=== PATIENT | female | born 1990 ===

== ENCOUNTER 2023-01-12 16:20 | Outpatient (CLI) | payer SELFPAY ==
--- NOTE | ~2023-01-12 | US_ITS ---
EXAMINATION: US OB transvaginal INDICATION: RLQ PAIN TECHNIQUE: Sonography of the pelvis was performed by transvaginal techniques. COMPARISON: None. RESULT: Uterus: Orientation: Anteverted. 9.2 x 5.4 x 5.6 cm. Myometrium: 1.6 x 0.8 x 1.0 cm rounded appearin g echogenic focus adjacent to and indenting the inferior aspect of the gestational sac. Intrauterine gestational sac: Single present. Mean Sac Diameter: cm, corresponding gestational age week days. Yol k sac: Visualized, not directly measured . Embryo: Single present. [place] rump length: 0.8 cm, corre sponding gestational age 6 weeks, 5 days. Gestational heart rate: present 133 bpm. Subgestational he matoma: No hypoechoic subcutaneous gestational collection detected . Right ovary: 4.6 x 2.3 x 3.5 cm. Normal sonographic appearance with physiologic follicles. . Vascu lar flow is present. 2.0 cm simple cyst or dominant follicle. Left ovary: 2.2 x 0.9 x 1.8 cm. Normal sonographic appearance with physiologic follicles. . Vascul ar flow is present. No adnexal mass. Pelvis free fluid: None. IMPRESSION: Single, live intrauterine gestation. Estimated Gestational Age: 6 weeks, 5 days by crown rump length. SUKHJINDER by ultrasound 09/02/2023. 1.6 cm endometrial polyp, submucosal fibroid, or organized clot adjacent to and indenting the inferio r aspect of the gestational sac. Consider OB consultation and close clinical and sonographic follow-u p. Reviewed, dictated and finalized at location K. IMPRESSION: Single, live intrauterine gestation. Estimated Gestational Age: 6 weeks, 5 days by crown rump length. SUKHJINDER by ultras ound 09/02/2023. 1.6 cm endometrial polyp, submucosal fibroid, or organized clot adjacent to and indenting the inferior aspect of the gestational sac. Consider OB consultation and close clinical and sonographic follow-up.
== END 2023-01-12 16:21 ==
PROVIDERS: PCP Advanced Practice Midwife; Visit Provider Advanced Practice Midwife
DX: O26.851 Spotting complicating pregnancy, first trimester (principal); O99.891 Other specified diseases and conditions complicating pregnancy; N84.0 Polyp of corpus uteri
CPT/HCPCS: 76817

== ENCOUNTER 2023-02-10 12:39 | Outpatient (CLI) | payer OTHER, SELFPAY ==
--- NOTE | ~2023-02-10 | US_ITS ---
EXAMINATION: US OB <= 14 weeks fetus DATE: 02/10/2023 14:07 INDICATION: Spotting during first trimester TECHNIQUE: Real-time pelvic transabdominal ultrasound was performed. COMPARISON: 01/12/2023 FINDINGS: The uterus measures 12.8 x 7.5 x 7.8 cm. There is an intrauterine gestational sac. A yolk s ac is identified. heart motion is identified measuring 145 beats per minute (bpm) by M-mode Dop pler. The crown rump length measures 4.3 cm, which correlates with an estimated gestational age of 11 weeks and 1 day(s) (+/-) 7 day(s). The left ovary is not visualized however no left adnexal abnormality is seen. The right ovary measure s 4.3 x 1.7 x 2.1 cm. There is normal vascular flow in the right ovary. There is no free fluid in the pelvis. IMPRESSION: 1. Live intrauterine with an estimated gestational age of 11 weeks and 1 day(s) (+/-) 7 day (s) and an estimated delivery date of 08/31/2023. 2. No sonographic correlate for the patient's symptoms. Reviewed, dictated and finalized at location L. IMPRESSION: 1. Live intrauterine with an estimated gestational age of 11 weeks an d 1 day(s) (+/-) 7 day(s) and an estimated delivery date of 08/31/2023. 2. No sonographic correlate for the patient's symptoms.
[2023-02-10 14:19] LABS: Basophils Absolute Auto 0.1 K/mm3 (0.0-0.1); Basophils Percent Auto 0.8 % (0.2-1.2); Eosinophils Absolute Auto 0.2 K/mm3 (0-0.3); Eosinophils Percent Auto 1.9 % (0-4.4); Hematocrit 44.1 % (37.0-47.0); Hemoglobin 14.7 g/dL (12.0-15.0); Immature Granulocyte Absolute 0.06 K/mm3 (0.00-0.031); Immature Granulocyte Percent A 0.5 % (0-0.5); Lymphocytes Absolute Auto 3.59 K/mm3 (0.9-3.2); Lymphocytes Percent Auto 28.3 % (18.3-44.2); Mean Corpuscular HGB Conc 33.3 g/dl (32-36); Mean Corpuscular Hemoglobin 29.4 pg (26-34); Mean Corpuscular Volume 88.2 fl (80-100); Mean Platelet Volume 9.9 fl (7.4-10.4); Monocytes Absolute Auto 0.7 K/mm3 (0.1-0.6); Monocytes Percent Auto 5.4 % (2.6-8.5); Neutrophils Percent Auto 63.1 % (45.5-73.1); Platelet Count Result 341 k/mm3 (150-375); Red Cell Distribution Width 12.3 % (11.5-14.5); White Blood Count 12.7 K/mm3 (4.5-10.0)
[2023-02-10 14:33] LABS: Hemoglobin A1C 5.7 % (<5.7)
[2023-02-10 14:56] LABS: Free T4 Free Thyroxine 0.88 ng/mL (0.78-2.19)
[2023-02-10 15:09] LABS: Vitamin D 25 Hydroxy 30.2 ng/mL
[2023-02-10 15:12] LABS: HIV 1/2 Ab P24 Ag Result Negative (Negative)
[2023-02-10 15:18] LABS: Hepatitis B Surface Antigen Negative (Negative)
[2023-02-10 15:32] LABS: Hepatitis C Virus Antibody Negative (Negative)
[2023-02-10 20:52] LABS: Rubella IgG Antibody > 110.0 IU/ML
[2023-02-11 13:54] LABS: Rapid Plasma Reagin Non-Reactive (NonReactive)
== END 2023-02-10 12:40 | disposition home or self-care (01) ==
PROVIDERS: PCP Advanced Practice Midwife; Visit Provider Advanced Practice Midwife
DX: Z13.29 Encounter for screening for other suspected endocrine disorder (principal); O26.851 Spotting complicating pregnancy, first trimester; O36.8910 Maternal care for other specified fetal problems, first trimester, not applicable or unspecified; Z3A.11 11 weeks gestation of pregnancy
CPT/HCPCS: 36415; 76801; 82306; 82728; 83036; 84439; 84443; 85025; 86592; 86703; 86762; 86803; 86850; 86900; 86901; 87340; G0432

== ENCOUNTER 2023-02-13 09:26 | Outpatient (CLI) | payer OTHER, SELFPAY ==
[2023-02-13 11:10] LABS: Glucose Fasting 97 mg/dL
[2023-02-13 13:17] LABS: Glucose 1 Hour 198 mg/dL
[2023-02-13 14:45] LABS: Glucose 2 Hour 163 mg/dL
== END 2023-02-13 09:27 | disposition home or self-care (01) ==
LOC: ANHLAB 09:30
PROVIDERS: PCP Advanced Practice Midwife; Visit Provider Obstetrics & Gynecology Gynecology
DX: R79.9 Abnormal finding of blood chemistry, unspecified (principal)
CPT/HCPCS: 36415; 82951

== ENCOUNTER 2023-04-01 10:35 | Outpatient (CLI) | payer OTHER, SELFPAY ==
[2023-04-01 12:03] LABS: Free T4 Free Thyroxine 0.77 ng/mL (0.78-2.19)
== END 2023-04-01 10:36 | disposition home or self-care (01) ==
LOC: ANHLAB 10:37
PROVIDERS: PCP Advanced Practice Midwife; Visit Provider Advanced Practice Midwife
DX: E03.9 Hypothyroidism, unspecified (principal)
CPT/HCPCS: 36415; 84439; 84443

== ENCOUNTER 2023-06-24 11:59 | Outpatient (CLI) | payer OTHER, SELFPAY ==
[2023-06-24 12:53] LABS: Hematocrit 43.4 % (37.0-47.0)
[2023-06-24 13:33] LABS: Free T4 Free Thyroxine 0.75 ng/mL (0.78-2.19); Vitamin D 25 Hydroxy 51.9 ng/mL
[2023-06-24 13:39] LABS: Thyroid Stimulating Hormone 0.643 uIU/mL (0.465-4.680)
[2023-06-24 13:48] LABS: HIV 1/2 Ab P24 Ag Result Negative (Negative)
== END 2023-06-24 12:00 | disposition home or self-care (01) ==
LOC: ANHLAB 12:03
PROVIDERS: PCP Advanced Practice Midwife; Visit Provider Advanced Practice Midwife
DX: E03.9 Hypothyroidism, unspecified (principal); Z36.9 Encounter for antenatal screening, unspecified
CPT/HCPCS: 36415; 82306; 84439; 84443; 85014; 85018; 86703; G0432

== ENCOUNTER 2023-07-27 01:02 | Inpatient (IN) | payer OTHER, SELFPAY ==
[2023-07-27] VITALS (38 sets, daily range): BP systolic 117–173; BP diastolic 71–106; PULSE 68–111; RESP 16–17; TEMP 36.8; O2SAT 97–100; BMI 32.2
--- NOTE | ~2023-07-27 | US_ITS ---
ADDENDUM The following biometric data were obtained: BPD: 86 cm corresponds to gestational age 34 weeks 3 day(s). Head circumference: 308 cm corresponds to gestational age 34 weeks 2 day(s). Abdominal circumference: 299 cm corresponds to gestational age 33 weeks 6 day(s). Femur length: 64 cm corresponds to gestational age 33 weeks 0 day(s). Head circumference to abdominal circumference ratio: 1.03, normal range for gestational age of 0.95-1.11 Estimated weight: 2265 g plus or minus 340 g, 20.2% using Hadlock method. MONITOR addendum Dictated By: Diego Fry MD addendum signed By: 07/27/23944 DD/ TD/TT: / EXAMINATION: US OB limited w BPP DATE: 07/27/2023 08:06 PVC MONITOR INDICATION: Gestational hypertension. Spotting. TECHNIQUE: Real-time transabdominal obstetric ultrasound. FINDINGS: No prior studies for comparison. There is a single living fetus in vertex presentation. The placenta is anterior without placenta previa. KATERINA is normal measuring 12.9 cm. cardiac activity and movement is noted with a heart rate of 125 beats per minute. Biophysical profile: breathin of 2 movement: 2 of 2 tone: 2 of 2 Amniotic flud pocket: 2 of 2 Total score: 6 of 8 IMPRESSION: 1. Single living intrauterine in vertex presentation. 2: Total biophysical profile score of 6/8. MONITOR MTDD
--- NOTE | ~2023-07-27 | US_ITS ---
EXAMINATION: US OB limited w BPP DATE: 07/27/2023 08:06 WIND TURBINE ERECTOR INDICATION: Gestational hypertension. Spotting. TECHNIQUE: Real-time transabdominal obstetric ultrasound. FINDINGS: No prior studies for comparison. There is a single living fetus in vertex presentation. The placenta is anterior without placenta pre via. KATERINA is normal measuring 12.9 cm. cardiac activity and movement is noted with a heart rate of 125 beats per minute. Biophysical profile: breathin of 2 movement: 2 of 2 tone: 2 of 2 Amniotic flud pocket: 2 of 2 Total score: 6 of 8 IMPRESSION: 1. Single living intrauterine in vertex presentation. 2: Total biophysical profile score of 6/8. Reviewed, dictated and finalized at location A. TURBINE ERECTOR
--- NOTE | ~2023-07-27 | US_ITS ---
ADDENDUM The following biometric data were obtained: BPD: 86 cm corresponds to gestational age 34 weeks 3 day(s). Head circumference: 308 cm corresponds to gestational age 34 weeks 2 day(s). Abdominal circumference: 299 cm corresponds to gestational age 33 weeks 6 day(s). Femur length: 64 cm corresponds to gestational age 33 weeks 0 day(s). Head circumference to abdominal circumference ratio: 1.03, normal range for gestational age of 0.95-1.11 Estimated weight: 2265 g plus or minus 340 g, 20.2% using Hadlock method. OTYPE FABRICATOR EXAMINATION: US OB limited w BPP DATE: 07/27/2023 08:06 PROTOTYPE FABRICATOR INDICATION: Gestational hypertension. Spotting. TECHNIQUE: Real-time transabdominal obstetric ultrasound. FINDINGS: No prior studies for comparison. There is a single living fetus in vertex presentation. The placenta is anterior without placenta previa. KATERINA is normal measuring 12.9 cm. cardiac activity and movement is noted with a heart rate of 125 beats per minute. Biophysical profile: breathin of 2 movement: 2 of 2 tone: 2 of 2 Amniotic flud pocket: 2 of 2 Total score: 6 of 8 IMPRESSION: 1. Single living intrauterine in vertex presentation. 2: Total biophysical profile score of 6/8. OTYPE FABRICATOR MTDD
--- NOTE | 2023-07-27 01:02 | OBADM ---
This patient, Daisy Mitchell, admitted to the OB room Labor/Delivery/Recovery 106 for observation. Patient/family oriented to hospital policies and general routines including ID bracelet, bed and alarms, visiting hours, pain management, procedures, bathroom and other care routines, personal items, smoking policy, room service/diet, and visiting hours. Patient/Family are encouraged to report perceived risks to care and to ask questions if they do not understand what they are told or what they should do.
[2023-07-27 01:43] LABS: Appearance Urine Clear (Clear); Bacteria Urine None Seen /hpf; Bilirubin Urine Negative (Negative); Blood Urine Trace (Negative); Color Urine Yellow (Yellow); Glucose Urine UA Negative (Negative); Ketones Urine Negative (Negative); Leukocyte Esterase Ur Negative LEU/UL (Negative); Nitrate Urine Negative (Negative); Protein Urine 3+ mg/dL (Negative); RBC Urine 0-2 /hpf (0-2); Specific Grav Ur 1.008 (1.001-1.035); Squamous Epithelial Cell Urine None seen /hpf (Few); Urobilinogen Urine 0.2 mg/dL (<2.0); WBC Urine 0-5 /hpf
[2023-07-27 01:46] LABS: Creatinine Urine 25.5 mg/dL
[2023-07-27 01:47] LABS: Add Urine Microscopic? YES
[2023-07-27 01:48] LABS: Basophils Absolute Auto 0.1 K/mm3 (0.0-0.1); Basophils Percent Auto 0.8 % (0.2-1.2); Eosinophils Absolute Auto 0.3 K/mm3 (0-0.3); Eosinophils Percent Auto 2.7 % (0-4.4); Hematocrit 40.9 % (37.0-47.0); Immature Granulocyte Absolute 0.03 K/mm3 (0.00-0.031); Immature Granulocyte Percent A 0.3 % (0-0.5); Lymphocytes Absolute Auto 3.37 K/mm3 (0.9-3.2); Lymphocytes Percent Auto 32.1 % (18.3-44.2); Mean Corpuscular HGB Conc 31.8 g/dl (32-36); Mean Corpuscular Hemoglobin 27.5 pg (26-34); Mean Corpuscular Volume 86.7 fl (80-100); Mean Platelet Volume 11.7 fl (7.4-10.4); Monocytes Absolute Auto 0.9 K/mm3 (0.1-0.6); Monocytes Percent Auto 8.9 % (2.6-8.5); Neutrophils Absolute Auto 5.8 K/mm3 (1.3-6.7); Neutrophils Percent Auto 55.2 % (45.5-73.1); Platelet Count Result 245 k/mm3 (150-375); Red Blood Count 4.72 M/mm3 (4.2-5.4); White Blood Count 10.5 K/mm3 (4.5-10.0)
[2023-07-27 01:58] LABS: Alanine Aminotransferase 15 U/L (6-35); Albumin Level 3.5 g/dL (3.5-5.1); Alkaline Phosphatase 154 U/L (38-126); Anion Gap 8 mmol/L (8-16); Aspartate Amino Transferase 21 U/L (14-36); Bilirubin,Total 0.3 mg/dL (0.2-1.3); Blood Urea Nitrogen 18 mg/dL (7-17); Calcium 9.1 mg/dL (8.4-10.2); Carbon Dioxide 17 mmol/L (22-30); Chloride 108 mmol/L (98-107); Estimated Glomerular Filt Rate > 60; Glucose 76 mg/dL (65-110); Potassium 4.1 mmol/L (3.4-5.0); Sodium 133 mmol/L (137-145); Uric Acid 8.2 mg/dL (2.5-7.5)
--- NOTE | 2023-07-27 02:02 | PC.NURSE ---
0200- Dr. Kern paged. 020- Dr. Kern returned page. Dr. Kern updated on lab results including CMP, CBC, UA and Uric acid. Dr. Kern also updated on patient vital signs since arrival to OB unit. Patient denies any BATRES, vision changes, epigastic pain or s/s of preeclampsia. Patient reflexes are wnl. 1+ pitting edema noted in shins, patient states this has been present for over a week. FHT appropriate for gestational age and active movement noted. Patient presented with complaint of spotting 07/26 in the morning with additional brown discharge 07/26 in the evening that has now resolved. Patient also reports increased pelvic pain when standing/ambulating. Orders received to keep patient overnight for observation with ultrasound in the AM. Order also received for steroids and IV placement.
[2023-07-27 02:20] LABS: Total Protein Urine Random 276 mg/dL; Ur Ttl Prot Creatinine Ratio 10.82 mg/mg (0-0.20)
[2023-07-27] MEDS: BETAMETHASONE SOD PHOS/ACETATE 30 MG/5 ML VIAL 12 MG IM (03:08)
[2023-07-27] MEDS: INSULIN HUMAN NPH (*BKC) 100 UNITS/ML SUB-Q (05:30)
[2023-07-27] MEDS: LEVOTHYROXINE SODIUM 75 MCG TABLET PO (05:31)
[2023-07-27 05:47] LABS: Glucose Point of Care 84 mg/dl (65-105)
--- NOTE | 2023-07-27 07:37 | PM.OBPNLAB ---
Pain Control Date/time seen: 07/27/23 07:37 Comments: pt off unit in US. Strip, VS, labs reviewed. Bran US report.
--- NOTE | 2023-07-27 07:46 | PM.IMHP ---
H&P: HPI History of Present Illness Date/Time: 07/27/23 07:46 Chief Complaint: Vaginal bleeding Narrative: Pt presented to L&D with c/o spotting. Found to have severe range BPs. PIH labs sent. Celestone initiated. Ultrasound ordered. CNM at bedside at 0750. Pt reports feeling palpitations every evening when lying down. Denies palpitations otherwise. Also reports for the initial time having 2 weeks of intermittent blurred vision and intermittent sparkles . These vision changes happen independently from one another and are sporadic. No vision changes at this time. No RUQ pain. Good movement. Review of Systems Review of Systems: All systems reviewed & are unremarkable except as noted in HPI and below Meds Home Medications and Allergies Home Medications Medication Instructions Recorded Confirmed Type insulin NPH isoph U-100 human 100 4 unit subcut QAM 07/27/23 07/27/23 History unit/mL subcutaneous suspension (Humulin N NPH U-100 Insulin (isophane susp)) insulin NPH isoph U-100 human 100 18 unit subcut HS 07/27/23 07/27/23 History unit/mL subcutaneous suspension (Humulin N NPH U-100 Insulin (isophane susp)) insulin lispro 100 unit/mL 5 unit subcut QACBREAK 07/27/23 07/27/23 History subcutaneous solution insulin lispro 100 unit/mL 7 unit subcut QACDINNER 07/27/23 07/27/23 History subcutaneous solution levothyroxine 75 mcg tablet 75 mcg PO QAM 07/27/23 07/27/23 History Allergies Allergy/AdvReac Type Severity Reaction Status Date / Time No Known Allergies Allergy Verified 07/27/23 02:43 Vital Signs Vital Signs - 24 hr 07/27/23 01:19 07/27/23 01:23 07/27/23 01:31 Temperature Pulse Rate 74 74 79 Respiratory Rate Blood Pressure 173/96 H 160/106 H 147/95 H Blood Pressure [Right Arm] Oxygen Delivery 07/27/23 01:46 07/27/23 02:01 07/27/23 02:16 Temperature Pulse Rate 73 77 78 Respiratory Rate Blood Pressure 154/95 H 158/91 H 140/92 H Blood Pressure [Right Arm] Oxygen Delivery 07/27/23 03:23 07/27/23 03:42 07/27/23 03:46 Temperature Pulse Rate 81 85 74 Respiratory Rate Blood Pressure 152/97 H 148/84 H 139/87 Blood Pressure [Right Arm] Oxygen Delivery 07/27/23 04:01 07/27/23 01:20 07/27/23 04:16 Temperature 98.3 F Pulse Rate 80 86 Respiratory Rate 17 Blood Pressure 134/71 132/86 Blood Pressure [Right Arm] Oxygen Delivery 07/27/23 02:00 07/27/23 04:31 07/27/23 05:01 Temperature 98.3 F Pulse Rate 80 89 Respiratory Rate 16 Blood Pressure 117/74 124/81 Blood Pressure [Right Arm] Oxygen Delivery 07/27/23 06:01 07/27/23 01:20 07/27/23 01:20 Temperature Pulse Rate 84 74 Respiratory Rate Blood Pressure 125/77 Blood Pressure [Right Arm] 173/96 H Oxygen Delivery Room Air 07/27/23 04:11 Temperature Pulse Rate 68 Respiratory Rate Blood Pressure Blood Pressure [Right Arm] 147/95 H Oxygen Delivery Exam Const: General: comfortable and no acute distress Eyes: General: appearance normal, both eyes and all related structures Neck: Neck: supple Resp: Effort & Inspection: normal respiratory effort Auscultation: clear to auscultation bilaterally Cardio: Rate: regular rate GI: GI Palp: Yes Soft to palpation Other: gravid. Mild ctx palpated. : General: Yes bladder normal to palpation Speculum Exam - Vagina: vaginal bleeding (small amount dark garsia/brown bleeding in vault. Absorbed with large Q-tip. ) Other: Cervical os visually 0.5cm. SVE 1/60/-3 and soft. head palpated. Skin: General skin exam: normal color and no rashes or lesions noted Neuro: General: gait normal Speech: normal speech Sensory Exam: normal sensation Extrem: General: normal exam except as noted and edema (BLE 1+ pitting to knees) Psych: Mental Status: mental status grossly normal Affect: normal affect H&P: Results Labs Labs: Short CBC 07/27/23 R
--- NOTE | 2023-07-27 08:09 | ECG_ITS ---
Measurements Intervals [place] Rate: 76 P: 22 MT: 120 QRS: 7 QRSD: 89 T: 16 QT: 378 QTc: 425 Interpretive Statements SINUS RHYTHM LOW QRS VOLTAGE IN PRECORDIAL LEADS CANNOT RULE OUT SEPTAL INFARCT, AGE INDETERMINATE BORDERLINE T WAVE ABNORMALITY- ANTERIOR LEADS ABNORMAL ECG NO PREVIOUS ECG AVAILABLE FOR COMPARISON Electronically Signed On 07-27-2023 8:52:04 OPTICAL ADVISOR by Shekhar Pires D.O.
[2023-07-27] MEDS: INSULIN ASPART (*BKC) 100 UNITS/ML SUB-Q (09:44)
[2023-07-27 10:21] LABS: Free T4 Free Thyroxine 0.84 ng/mL (0.78-2.19)
[2023-07-27 11:02] LABS: Glucose Point of Care 193 mg/dl (65-105)
--- NOTE | 2023-07-27 12:32 | PM.OBPNLAB ---
Pain Control Date/time seen: 07/27/23 12:32. Spoke with Dr. Sierra Espinosa on telephone. Discussed pt situation. MD to evaluate pt after office hours today.
[2023-07-27] MEDS: FAMOTIDINE 10 MG TABLET PO (14:31)
[2023-07-27 14:38] LABS: Glucose Point of Care 223 mg/dl (65-105)
[2023-07-27] MEDS: INSULIN HUMAN REGULAR (*BKC) 100 UNITS/ML SUB-Q (15:27)
[2023-07-27] MEDS: NIFEdipine 10 MG CAPSULE PO (15:28)
[2023-07-27 16:42] LABS: Glucose Point of Care 165 mg/dl (65-105)
--- NOTE | 2023-07-27 17:11 | PM.OBPNLAB ---
Pain Control Date/time seen: 07/27/23 17:11 Comments: Denies pain other than some chronic lower pelvic soreness. No BATRES, visual changes, RUQ pain. Denies any bright red bleeding or regular ctx. Feeling good movement. Assessment and Plan Comments: Deferred SVE at this time. OK to come off of continuous monitoring, plan NST BID. Plan repeat bloodwork overnight when 24 hour urine completed. Continue BP Q2 while awake. No recent severe range BPs. Report any changes to RN. Continue diabetic diet. Plan second Celestone overnight. Dr. Sierra Espinosa updated.
[2023-07-27] MEDS: INSULIN ASPART (*BKC) 100 UNITS/ML 7 UNITS SUB-Q (17:39)
--- NOTE | 2023-07-27 18:39 | WPDHPUPDATE1 ---
History and Physical Update Update Date/Time: 07/27/23 18:39 History and Physical has been reviewed, including an updated exam of the patient. There are NO changes in the patient's condition. Risks, benefits, and alternatives have been discussed and questions answered. Patient agrees to proceed with procedure. Discussed the elevated protein and awaiting the 24hour urine at this point her blood pressures have been very good however her sugar was a little bit uncontrolled after the slough stone and she is getting the 2nd dose today. She is having a boy and has diabetes and is only 34 and half weeks gestation so explained the possibility of immaturity of lungs and the possibility of transfer of she appears to be coming sick. She presently looks very stable under blood pressures are not excessively high however she has the possibility of becoming very sick will await the remainder of her labs have been repeated in morning and make decisions from there. The meantime will continue to control the blood sugars with her scheduled doses rolling doses of regular as needed.
[2023-07-27 18:43] LABS: Glucose Point of Care 125 mg/dl (65-105)
[2023-07-27] MEDS: INSULIN HUMAN NPH (*BKC) 100 UNITS/ML 18 UNITS SUB-Q (20:56)
[2023-07-27 21:07] LABS: Glucose Point of Care 140 mg/dl (65-105)
[2023-07-28] VITALS (30 sets, daily range): BP systolic 139–164; BP diastolic 74–103; PULSE 86–108; RESP 18; TEMP 37–37.4; O2SAT 99–100
[2023-07-28 01:12] LABS: Hematocrit 40.4 % (37.0-47.0); Hemoglobin 12.7 g/dL (12.0-15.0); Mean Corpuscular HGB Conc 31.4 g/dl (32-36); Mean Corpuscular Hemoglobin 27.3 pg (26-34); Mean Corpuscular Volume 86.9 fl (80-100); Mean Platelet Volume 11.8 fl (7.4-10.4); Platelet Count Result 281 k/mm3 (150-375); Red Blood Count 4.65 M/mm3 (4.2-5.4); Red Cell Distribution Width 14.2 % (11.5-14.5); White Blood Count 11.7 K/mm3 (4.5-10.0)
[2023-07-28 01:25] LABS: Alanine Aminotransferase 18 U/L (6-35); Albumin Level 3.2 g/dL (3.5-5.1); Alkaline Phosphatase 153 U/L (38-126); Anion Gap 7 mmol/L (8-16); Aspartate Amino Transferase 26 U/L (14-36); Bilirubin,Total 0.4 mg/dL (0.2-1.3); Blood Urea Nitrogen 19 mg/dL (7-17); Calcium 8.8 mg/dL (8.4-10.2); Carbon Dioxide 18 mmol/L (22-30); Chloride 106 mmol/L (98-107); Estimated CRCL calculation 96 ml/min; Estimated Glomerular Filt Rate > 60; Glucose 119 mg/dL (65-110); Potassium 4.5 mmol/L (3.4-5.0); Sodium 131 mmol/L (137-145)
[2023-07-28 01:52] LABS: Collection Time Urine 24 HOURS
[2023-07-28 02:16] LABS: Specific Gravity Ur 1.015; Total Protein Urine 24 Hr 13250 mg/24hr (28-141); Total Protein Urine Random 530 mg/dL; Total Volume 24 Hour Urine 2500 ml
[2023-07-28 02:27] LABS: Creatinine Urine 56.6 mg/dL; Patient Weight 176 Lbs
[2023-07-28 02:30] LABS: Creatinine Clearance Urine 134.6 ml/min (75-125); Total Volume 24 Hour Urine 2500 ml
--- NOTE | 2023-07-28 03:28 | P.PNOB_ITS ---
Pain Control Date/time seen: 07/28/23 03:15 CNM spoke with pt on telephone. Assessment and Plan Comments: Spoke with pt on telephone. Discussed current lab results and her symptoms. Discussed Dr. Zee's recommendation for transfer to [facility]. She does endorse a mild BATRES at this time and seeing 5 sparkles in her vision overnight. Discussed risks/benefits. Pt agrees with transfer and prefers [facility].
[2023-07-28] MEDS: BETAMETHASONE SOD PHOS/ACETATE 30 MG/5 ML VIAL 12 MG IM (03:33)
--- NOTE | 2023-07-28 03:42 | PC.NURSE ---
Jack Weinberg CNM called to discuss transfer of care, Jack Weinberg calling Dr. Sierra Espinosa to process transfer of care.
--- NOTE | 2023-07-28 03:42 | PM.OBPNLAB ---
Pain Control Date/time seen: 07/28/23 03:42 Status Comments: KENZIEM spoke with Eugenia ARECHIGA team. Discussed Severe Preeclampsia and concern for maternal/ seperation. GENI Bello accpts pt transfer.
[2023-07-28] MEDS: MAGNESIUM SULF 20GM/WATER500ML 500 ML 50 MG IV CONT (03:49)
--- NOTE | 2023-07-28 03:49 | PC.NURSE ---
Jack Weinberg CNM called with verbal orders to transfer pt to [facility], report given to Dr. Peña at [facility] by clyde Tran en route. Transfer paperwork was verbally discussed with Jack Weinberg and signed with verbal orders.
[2023-07-28] MEDS: LACTATED RINGERS 1,000 ML 75 ML IV CONT (03:50)
--- NOTE | 2023-07-28 03:50 | PM.TDS ---
Transfer Discharge Sum: Prov Provider Date of admission: 07/27/23 14:31 Primary care physician: Susie Weinberg CNM Admitting clinician: Dr. Sierra Espinosa Attending physician on admission: Asuncion Reyes Consults: Dr. Sierra Espinosa covering attending as Dr. Reyes out of town. Attending physician on discharge: Asuncion Reyes Discharging clinician: Susie Weinberg Anticipated date of transfer: 07/28/23 Receiving physician/facility: [facility] DS: Admitting Diagnosis Discharge Date 07/28/23 Admitting Diagnosis 32 y.o. at 34 weeks 6 days Severe Preeclampsia GDMA2 DS: Discharge Diagnosis Discharge Diagnosis (1) Hypothyroid in , antepartum: Code(s): O99.280 - Endocrine, nutritional and metabolic diseases complicating , unspecified trimester; E03.9 - Hypothyroidism, unspecified Status: Acute (2) Gestational diabetes mellitus (GDM): Code(s): O24.419 - Gestational diabetes mellitus in , unspecified control Status: Acute (3) 34 weeks gestation of : Code(s): Z3A.34 - 34 weeks gestation of Status: Acute (4) Vaginal bleeding during : Code(s): O46.90 - Antepartum hemorrhage, unspecified, unspecified trimester Status: Acute (5) Heart palpitations: Code(s): R00.2 - Palpitations Status: Acute (6) Threatened labor, antepartum: Code(s): O47.00 - False labor before 37 completed weeks of gestation, unspecified trimester Status: Acute (7) Severe preeclampsia: Code(s): O14.10 - Severe pre-eclampsia, unspecified trimester Status: Acute Transfer Discharge Sum: Med Medications Active and Home Medications: Home Medications insulin NPH isoph U-100 human 100 unit/mL subcutaneous suspension (Humulin N NPH U-100 Insulin (isophane susp)) 4 unit subcut QAM 07/27/23 [History Confirmed 07/27/23] insulin NPH isoph U-100 human 100 unit/mL subcutaneous suspension (Humulin N NPH U-100 Insulin (isophane susp)) 18 unit subcut HS 07/27/23 [History Confirmed 07/27/23] insulin lispro 100 unit/mL subcutaneous solution 5 unit subcut QACBREAK 07/27/23 [History Confirmed 07/27/23] insulin lispro 100 unit/mL subcutaneous solution 7 unit subcut QACDINNER 07/27/23 [History Confirmed 07/27/23] levothyroxine 75 mcg tablet 75 mcg PO QAM 07/27/23 [History Confirmed 07/27/23] Active Medications Famotidine (Famotidine 10 Mg Tablet) 10 mg PO BID PRN PRN Reason: Acid reflux Last Admin: 07/27/23 14:31 Dose: 10 mg Glucagon (Glucagon For Inj 1 Mg Vial) 1 mg IM ONCE PRN PRN Reason: Hypoglycemia Dextrose (Dextrose 5% 1,000 Ml) 1,000 mls @ 30 mls/hr IVPB PRN PRN PRN Reason: Hypoglycemia Lactated Ringer's (Lr - Lactated Ringers Iv) 1,000 mls @ 75 mls/hr IV CONT .[id number] [facility] Magnesium Sulfate (Magnesium Sulf 20gm/[id number]) 500 mls @ 50 mls/hr IV CONT .Q10H [facility] Insulin Aspart (Insulin Aspart (*Bkc) 100 Units/Ml) 5 units SUB-Q DAILY@0800 [facility] Last Admin: 07/27/23 09:44 Dose: 5 units Insulin Aspart (Insulin Aspart (*Bkc) 100 Units/Ml) 7 units SUB-Q DAILY@1700 [facility] Last Admin: 07/27/23 17:39 Dose: 7 units Insulin Human NPH (Insulin Human Nph (*Bkc) 100 Units/Ml) 4 units [facility] Last Admin: 07/27/23 05:30 Dose: 4 units Insulin Human NPH (Insulin Human Nph (*Bkc) 100 Units/Ml) 18 units SUB-Q [facility] Last Admin: 07/27/23 20:56 Dose: 18 units Levothyroxine Sodium (Levothyroxine Sodium 75 Mcg Tablet) 75 mcg PO DAILY@0630 [facility] Last Admin: 07/27/23 05:31 Dose: 75 mcg Transfer Discharge Sum: Hosp Hospital Course Hospital course: Daisy Mitchell is a 32 year old female at 34 weeks 6 days. She presented initally with c/o vaginal bleeding and was found to have severe and then mild range BPs. The bleeding slowed/resolved. NST remained reactive. A 24 hour urine resulted, confirming preeclampsia and Willyn began experiencing BATRES and visual changes. Dr. Zee was consulte
--- NOTE | 2023-07-28 03:58 | PC.NURSE ---
Updated Dr. Sierra Espinosa on transfer of care, pt to transfer to [facility].
--- NOTE | 2023-07-28 04:04 | PM.OBPNLAB ---
Pain Control Date/time seen: 07/28/23 04:04 Assessment and Plan Comments: Called by L&D RN. 24 hour urine results and CBC, CMP reviewed. RN notified Dr. Sierra Espinosa. recommended transfer of pt to [facility] given gestational age and severe proteinuria. CNM spoke with Dr. Sierra Espinosa on telephone at [phone] and discussed this recommendation.
[2023-07-28] MEDS: LABETALOL HCL INJ 100 MG/20 ML VIAL 20 MG IV PUSH (05:19)
--- NOTE | 2023-07-28 05:35 | PC.NURSE ---
Per Romelia Cueva from [facility] Transport team she was on the phone with Dr. Peña who ordered 20 of IV labatolol
--- NOTE | 2023-07-28 05:40 | PC.NURSE ---
Pt transferred via ambulance to [facility].
== END 2023-07-28 06:52 | disposition short-term general hospital (02) | DRG 832 ==
LOC: ANHLDR 01:19 → ANHOBPP 03:44
PROVIDERS: Obstetrics & Gynecology; Admitting Provider Obstetrics & Gynecology; PCP Advanced Practice Midwife; Visit Provider Obstetrics & Gynecology Gynecology
DX: O14.13 Severe pre-eclampsia, third trimester (principal); O47.03 False labor before 37 completed weeks of gestation, third trimester; O99.283 Endocrine, nutritional and metabolic diseases complicating pregnancy, third trimester; E03.9 Hypothyroidism, unspecified; O46.93 Antepartum hemorrhage, unspecified, third trimester; O24.414 Gestational diabetes mellitus in pregnancy, insulin controlled; Z3A.34 34 weeks gestation of pregnancy
CPT/HCPCS: 36415; 59025; 76815; 76816; 76819; 80053; 81001; 81050; 82570; 82575; 82948; 84156; 84439; 84443; 84550; 85025; 85027; 87081; 93005; A9270; G0378; G0379; J0702; J1815; J3475; J7120